=== PATIENT | male | born 1975 | race Caucasian/White ===

== ENCOUNTER 2020-11-10 14:07 | Emergency (ER) | payer SELFPAY ==
[~2020-11-10] VITALS: Ht 193 cm; Wt 113.4 kg
[2020-11-10] MEDS ORDERED: Prednisone10 MG PO (14:55)
[2020-11-10] MEDS ORDERED: PRED20 PO (14:55)
[2020-11-10] MEDS ORDERED: TRIDERM28.4 GM TOP (15:00)
== END 2020-11-10 15:10 | disposition home or self-care (01) ==
LOC: ER 14:07
DX: L25.9 Unspecified contact dermatitis, unspecified cause (principal)
CPT/HCPCS: 99282